=== PATIENT | male | born 1950 | race Caucasian/White ===

== ENCOUNTER 2024-02-29 13:22 | Emergency (ER) | payer MEDICARE, OTHER, SELFPAY ==
[2024-02-29 13:31] VITALS: BP 107/78
[2024-02-29 13:52] LABS: % Basophils 0.6 % (0-2); % Immature Granulocytes 1.5 % (0-0.5); % Lymphocytes 14.6 % (20.5-51.1); % Monocytes 4.1 % (1.7-9.3); % Neutrophils 78.2 % (42.2-75.2); Absolute Basophils 0.1 10^3/uL (0-0.2); Absolute Eosinophils 0.1 10^3/uL (0-0.7); Absolute Immature Granulocytes 0.2 10^3/uL (0-0.05); Absolute Lymphocytes 1.6 10^3/uL (1.2-3.4); Absolute Monocytes 0.5 10^3/uL (0.1-0.6); Absolute Neutrophils 8.6 10^3/uL (1.4-6.5); Hematocrit 46.6 % (39.0-52.0); Mean Corp Hgb Conc. 34.3 g/dL (33.0-37.0); Mean Corpuscular Hgb 31.3 pg (27.0-31.0); Mean Platelet Volume 8.5 fL (7.4-10.4); Nucleated Red Blood Cells % 0 % (-); Platelet Count 302 10^3/uL (130-400); Red Blood Cell Count 5.12 10^6/uL (4.70-6.10); Red Cell Dist. Width 14.5 % (11.5-14.5)
[2024-02-29 14:16] LABS: ALT (SGPT) 34 U/L (0-50); AST (SGOT) 26 U/L (17-59); Albumin 4.2 g/dl (3.5-5.0); Alkaline Phosphatase 78 U/L (38-126); Blood Urea Nitrogen 24 mg/dl (9-20); Calcium 10.3 mg/dl (8.4-10.2); Carbon Dioxide 26 mmol/L (22-30); Chloride 103 mmol/L (98-107); Glucose 119 mg/dl (70-99); Potassium 4.4 mmol/L (3.5-5.1); Sodium 138 mmol/L (135-145); Total Bilirubin 0.6 mg/dl (0.2-1.3); Total Protein 7.4 g/dl (6.3-8.2); eGFR > 60.00
[2024-02-29 14:20] LABS: Troponin I 0.055 ng/ml
[2024-02-29 14:44] VITALS: BMI 31.9
[2024-02-29 14:49] VITALS: BP 101/62
[2024-02-29 15:10] VITALS: BP 111/74
--- NOTE | 2024-02-29 15:30 | ED.GENMED ---
History of Present Illness
<Diane Cole PA-C - Last Filed: 02/29/24 20:05>
General
Chief Complaint: Dizziness
Source: patient
Exam Limitations: none
Time Seen by Provider: 02/29/24 15:13
Nursing documentation reviewed up to this point in time: agreed with
Travel History
Have you had any contact with someone who has COVID-19?: No
Do you have any symptoms of coronavirus? Fever > 100 degrees, chills, cough, shortness of breath, sore throat, loss of taste or smell, muscle aches, or headache?: No
History of Present Illness
History of Present Illness:
Patient is a 73 year old male with hx CAD s/p multiple stents and CABG, HTN, HLD presenting to the emergency department due to worsening fatigue and lightheadedness. Symptoms been ongoing for the past 10 days, but he noticed an acute worsening this
past weekend approximate 2 days ago. Patient describes worsening fatigue, and lightheadedness worse with exertion. Patient denies any true spinning sensation. Patient does endorse some worsening shortness of breath with exertion, as well.
Patient denies any chest pain, nausea, vomiting, diaphoresis, back pain. Patient does however note that he recently finished a weeklong course of Bactrim for a UTI. Patient denies any fever, chills, abdominal pain, or urinary symptoms at this
time. Patient does also endorse some weight loss over the past few weeks.
Patient denies any recent travel or recent surgeries.
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
Past History
<Diane Cole PA-C - Last Filed: 02/29/24 20:05>
Past History
ED Past Medical History: CAD, HTN, Hypercholesterolemia and Other (gallstones); Negative Asthma, Cancer, CHF, COPD or CVA
ED Past Surgical History: Cardiac; Negative Appendectomy or Cholecystectomy
Social History
Tobacco: Non-smoker
Alcohol: Occasional
Drug: None
Personal:
Living: with family
Employment: Employed
Family History
Family History: Hypertension; Negative Early CAD
Review of Systems
<Diane Cole PA-C - Last Filed: 02/29/24 20:05>
Review of Systems
Allergies reviewed?: Yes
All Other Systems: ROS reviewed and negative except as documented in HPI and ROS
Phy Exam
<Diane Cole PA-C - Last Filed: 02/29/24 20:05>
Physical Exam
Physical Exam:
Vitals: Patient's vital signs are stable. Afebrile
General: Patient is well appearing, no acute distress. Nontoxic appearing.
Skin: Warm and dry, no rashes or lesions
Head: Normocephalic, atraumatic
Eyes: Sclera nonicteric. EOMs intact. No nystagmus.
Throat: Protecting airway
Neck: Normal ROM, no cervical spine tenderness, no meningismus.
Cardiac: Regular rate and rhythm, no murmurs.
Pulm: Normal respiratory effort, no wheezes, rales, rhonchi heard on exam.
Abdomen: Abdomen soft. No abdominal tenderness.
Extremities: No evidence of cyanosis or edema. Good distal pulses.
Neuro: AAOx3. CN II-XII intact. No focal neurologic deficits. Normal finger to nose.
Psychiatric: Normal affect.
Course
<Diane Cole PA-C - Last Filed: 02/29/24 20:05>
Orders/Labs/Results
Orders:
Orders
02/29/24 13:35
Electrocardiogram (*1) Urgent
Reason for Study: Fatigue / Weakness
EKG- Treatment ONCE
02/29/24 13:45
Complete Blood Count/With Diff Urgent
Comprehensive Metabolic Panel Urgent
Troponin I Urgent
02/29/24 15:31
0.9% Sodium Chloride 1000 ml [Nss] 1,000 ml IV BOLUS
02/29/24 15:45
CR Chest - 2 Views Urgent
Comment:
Reason For Exam: weakness, lightheadedness
02/29/24 15:46
EKG- Treatment ONCE
02/29/24 15:54
Urinalysis Reflex To Culture Urgent
Date Specimen was Collected: 02/29/24
Time Specimen was Collected: 15:50
02/29/24 16:45
Electrocardiogram (*1) Urgent
Reason for Study: Fatigue / Weakness
02/29/24 16:59
NT-proBNP Urgent
Troponin I Urgent
Abnormal Lab Results
02/29/24 02/29/24
13:45 16:59
WBC 11.0 H 10^3/uL
(4.8-10.8)
MCH 31.3 H pg
(27.0-31.0)
Abs Immat Gran (auto) 0.2 H 10^3/uL
(0-0.05)
Absolute Neuts (auto) 8.6 H 10^3/uL
(1.4-6.5)
Immature Gran % 1.5 H %
(0-0.5)
Neutrophils % 78.2 H %
(42.2-75.2)
Lymphocytes % 14.6 L %
(20.5-51.1)
BUN 24 H mg/dl
(9-20)
Glucose 119 H mg/dl
(70-99)
Calcium 10.3 H mg/dl
(8.4-10.2)
Troponin I 0.055 H* ng/ml 0.051 H* ng/ml
02/29/24 13:45
02/29/24 13:45
Vital Signs
Initial and Last Documented VS:
Initial Vital Signs
Temp Pulse Resp BP Pulse Ox
98.4 F 78 18 107/78 95
02/29/24 13:31 02/29/24 13:31 02/29/24 13:31 02/29/24 13:31 02/29/24 13:31
Last Documented Vital Signs
Temp Pulse Resp BP Pulse Ox
98.4 F 65 26 116/73 95
02/29/24 13:31 02/29/24 18:45 02/29/24 15:10 02/29/24 16:00 02/29/24 18:15
<Manuel Zelaya, DO - Last Filed: 02/29/24 16:26>
Orders/Labs/Results
Orders:
Orders
02/29/24 13:35
Electrocardiogram (*1) Urgent
Reason for Study: Fatigue / Weakness
EKG- Treatment ONCE
02/29/24 13:45
Complete Blood Count/With Diff Urgent
Comprehensive Metabolic Panel Urgent
Troponin I Urgent
02/29/24 15:31
0.9% Sodium Chloride 1000 ml [Nss] 1,000 ml IV BOLUS
02/29/24 15:45
CR Chest - 2 Views Urgent
Comment:
Reason For Exam: weakness, lightheadedness
02/29/24 15:46
EKG- Treatment ONCE
02/29/24 15:54
Urinalysis Reflex To Culture Urgent
Date Specimen was Collected: 02/29/24
Time Specimen was Collected: 15:50
02/29/24 16:45
Electrocardiogram (*1) Urgent
Reason for Study: Fatigue / Weakness
02/29/24 16:59
NT-proBNP Urgent
Troponin I Urgent
Abnormal Lab Results
02/29/24 02/29/24
13:45 16:59
WBC 11.0 H 10^3/uL
(4.8-10.8)
MCH 31.3 H pg
(27.0-31.0)
Abs Immat Gran (auto) 0.2 H 10^3/uL
(0-0.05)
Absolute Neuts (auto) 8.6 H 10^3/uL
(1.4-6.5)
Immature Gran % 1.5 H %
(0-0.5)
Neutrophils % 78.2 H %
(42.2-75.2)
Lymphocytes % 14.6 L %
(20.5-51.1)
BUN 24 H mg/dl
(9-20)
Glucose 119 H mg/dl
(70-99)
Calcium 10.3 H mg/dl
(8.4-10.2)
Troponin I 0.055 H* ng/ml 0.051 H* ng/ml
02/29/24 13:45
02/29/24 13:45
Vital Signs
Initial and Last Documented VS:
Initial Vital Signs
Temp Pulse Resp BP Pulse Ox
98.4 F 78 18 107/78 95
02/29/24 13:31 02/29/24 13:31 02/29/24 13:31 02/29/24 13:31 02/29/24 13:31
Last Documented Vital Signs
Temp Pulse Resp BP Pulse Ox
98.4 F 65 26 116/73 95
02/29/24 13:31 02/29/24 18:45 02/29/24 15:10 02/29/24 16:00 02/29/24 18:15
<Diane Cole PA-C - Last Filed: 02/29/24 20:05>
MDM/Problems Addressed
Differential Diagnosis Includes:
Not limited to: Dehydration, viral illness, UTI, pericarditis, myocarditis, ACS
MDM/Problems Addressed:
73-year-old male with significant past cardiac history including CAD with 2 LAD stents, CABG > 30 years ago presenting with persistent and worsening lightheadedness and fatigue over the past week. Patient does also endorse worsening dyspnea on
exertion over the past month. Some recent weight loss, as well. patient with recently treated UTI, although denies urinary symptoms at this time. Patient denies any chest pain, fever, chills. Labs obtained in triage show signs of mild dehydration
and elevated troponin to 0.055. ECG shows some nonspecific T wave flattening inferior leads, although compared to prior EKG and seems stable without any acute ischemic changes. Patient's vital signs are stable. Exam as above. Somewhat dry
appearing. Lungs clear bilaterally, heart regular rate and rhythm. Good distal pulses. Given elevated troponin�will repeat in 3 hours, check BNP. Will check chest x-ray. Given recent UTI and increased fatigue�will check urinalysis. Will give
IV fluids.
Chest x-ray shows no acute abnormalities. Urinalysis shows no signs of infection at this time. proBNP at 343. Second troponin essentially stable at 0.051. Patient remains stable without any chest pain. Did touch base with cardiology,
[facility], who agrees that patient is stable for discharge with outpatient cardiology follow-up. Symptoms possibly related to dehydration. Will place patient on chest pain hotline. Return precautions discussed with patient at length. Discussed
importance of staying well-hydrated, take it easy. Patient will follow with cardiology. All questions answered.
Chronic conditions affecting care:
CAD, hypertension, hyperlipidemia
Acute Exacerbation and/or Progression of Chronic Illness:
N/A
<Diane Cole PA-C - Last Filed: 02/29/24 20:05>
*Radiology
Radiology exam reviewed: preliminary read by ED provider and radiology read reviewed
*Pulse Oximetry
Patient hypoxic: no
*EKG
Interpreted by ED Provider?: Yes
EKG Intrepretation Date: 02/29/24
Interpretation: abnormal
Heart Rate: 76
Rate: normal
Rhythm: sinus
Ischemia: non-specific ST changes
*Plate Cutter Interpretation
Rate: normal
Interpretation: normal
Heart Rate: 76
Rhythm: sinus
*Critical Care Note
Total Time (30-74mins, 75-104mins- exclusive of procedures): Not Applicable
Data Reviewed
Review of Other/Old Records Reveals: Records, Radiology Studies and Testing (Stress test report from 10/01/23)
<Diane Cole PA-C - Last Filed: 02/29/24 20:05>
Patient Management
Discussion with other providers: Hog Room Supervisor (Cardiology - Dr. De León)
ED Attending Note
<Diane Cole PA-C - Last Filed: 02/29/24 20:05>
-
Portions of this chart may have been created with voice recognition software.� Occasional wrong word or��sound alike� substitutions may have occurred due to the inherent limitations of voice recognition software.
<Manuel Zelaya, - Last Filed: 02/29/24 16:26>
ED Attending Note
Patient seen and examined by attending physician: Yes
I performed a history and physical exam of patient and discussed management with resident, I reviewed resident's note and agree with documented findings and plan of care.: Yes
ED Attending Note:
I have reviewed and agree with history and treatment plan by Diane Cole. My exam revealed
Physical Exam
General: no apparent distress, not acutely ill
Neck: supple. no meningeal signs. normal posterior pharynx
Heart: s1/s2 regular rate and rhythm, no murmur. equal radial
pulses.
HEENT: Pupils equal round reactive to light, EOMI
Lungs: no acute respiratory distress. clear bilaterally
Abdomen: normal bowel sounds. not tender. no CVAT
Neuro: alert and oriented. no focal neurological deficits cranial nerves II through XII intact
Skin: no rash
Psychiatric: well kept. interactive and cooperative
Extremities: no edema. no calf tenderness. negative homans. good distal pulses
73-year-old male with dizziness and weakness, unclear cause. Patient had shortness of breath with exertion ongoing for 1 month.
Discharge Plan
Departure
Patient Disposition: Home (Routine Discharge)
Date of Disposition: 02/29/24
Time of Disposition: 18:27
Patient with high blood pressure during this ER visit?: No
Condition: Good
Covid-19: Not Applicable
Discharge Problem:
Lightheadedness, SNIDER (dyspnea on exertion)
Instructions: Dizziness, Adult ED, Shortness of Breath, Adult ED, Chest Pain CBC Follow Up
Prescriptions:
No Action
clopidogrel 75 MG tablet
75 mg PO DAILY
Metamucil Packet
1 packet PO BID
Theragen Tablet
1 tab PO DAILY
chlorthalidone 25 mg Tablet
25 mg PO DAILY
aspirin 81 mg Tablet,Delayed Release (Dr/Ec)
81 mg PO DAILY
pantoprazole [Protonix] 40 mg Tablet,Delayed Release (Dr/Ec)
40 mg PO DAILY
folic acid 1 mg Tablet
1 mg PO DAILY
Tylenol PM Extra Strength 25-500 mg Tablet
1 tab PO HSPRN PRN (Reason: mild pain)
ezetimibe-simvastatin [Vytorin 10-80] 10-80 mg Tablet
1 tab PO DAILY
Referrals:
Godfrey Hammer MD [Active] - Next open appointment
Kael Clarke MD [Family Provider] -
Activity Restrictions/Additional Instructions:
RETURN TO THE EMERGENCY DEPARTMENT WITH ANY FEVERS, CHEST PAIN, WORSENING SHORTNESS OF BREATH, FAINTING, PERSISTENT DIZZINESS, HEADACHE, WORSENING IN SYMPTOMS, OR ANY OTHER CONCERNS
-As discussed, it is important stay well-hydrated. You should eat a balanced diet. Get plenty of rest.
-Follow-up with cardiology for further evaluation/management. You should also touch base with your primary care physician
Interventions
Interventions:
*Risk Screen - Suicide Last Done: 02/29/24 14:44
*General Assessment Last Done: 02/29/24 14:44
*Neglect/Abuse Screening Last Done: 02/29/24 14:44
ED- Fall Risk Assessment Last Done: 02/29/24 14:44
*ED COVID-19 Vaccine History Last Done: 02/29/24 14:44
*Nursing Disposition Last Done: 02/29/24 18:57
ED- Pulmonary Assessment Last Done: 02/29/24 14:44
ED- Neurological Assessment Last Done: 02/29/24 14:44
ED- Cardiac Assessment Last Done: 02/29/24 14:44
ED Swallowing Screen Last Done: 02/29/24 14:50
Discharge Date and Time
Discharge Date/Time: 02/29/24 18:57
Print Language: GREENLANDIC
[2024-02-29 16:00] VITALS: BP 116/73
[2024-02-29 16:21] LABS: Urine Albumin Negative (Neg - Trace); Urine Bilirubin Negative (Negative); Urine Character Clear (Clear); Urine Color Yellow; Urine Glucose Negative (Negative); Urine Ketone Negative (Negative); Urine Leukocyte Negative (Negative); Urine Nitrite Negative (Negative); Urine Occult Blood Negative (Negative); Urine Specific Gravity 1.015 (<1.030); Urine Urobilinogen Negative (Neg - 1+)
[2024-02-29] MEDS: NSS 1000 IV (17:06)
[2024-02-29 17:45] LABS: NT-proBNP 343 pg/ml; Troponin I 0.051 ng/ml
== END 2024-02-29 18:57 | disposition home or self-care (01) ==
LOC: EMR 13:22
PROVIDERS: Emergency Medicine; Physician Assistant; EMERGENCY PHYSICIAN Emergency Medicine; FAMILY PHYSICIAN Internal Medicine
DX: R06.09 Other forms of dyspnea (principal); R42 Dizziness and giddiness; R53.1 Weakness; R53.83 Other fatigue; I25.10 Atherosclerotic heart disease of native coronary artery without angina pectoris; Z95.1 Presence of aortocoronary bypass graft; Z95.5 Presence of coronary angioplasty implant and graft; I10 Essential (primary) hypertension; E78.00 Pure hypercholesterolemia, unspecified; Z87.440 Personal history of urinary (tract) infections; Z88.0 Allergy status to penicillin; Z91.048 Other nonmedicinal substance allergy status; Z79.82 Long term (current) use of aspirin
CPT/HCPCS: 99284; 96360; 71046; 80053; 81003; 83880; 84484; 85025; 93005

== ENCOUNTER → 2024-04-01 12:43 | Outpatient (REF) | payer MEDICARE, OTHER, SELFPAY | LOC: RCS 12:43 | PROVIDERS: ATTENDING PHYSICIAN Nurse Practitioner; FAMILY PHYSICIAN Internal Medicine | DX: Z98.890 Other specified postprocedural states (principal); I25.10 Atherosclerotic heart disease of native coronary artery without angina pectoris; R06.02 Shortness of breath | CPT/HCPCS: 93306 ==

== ENCOUNTER → 2024-07-11 12:08 | Outpatient (REF) | payer MEDICARE, OTHER, SELFPAY | LOC: RAD 12:08 | PROVIDERS: ATTENDING PHYSICIAN Internal Medicine Cardiovascular Disease; FAMILY PHYSICIAN Internal Medicine | DX: Z98.890 Other specified postprocedural states (principal); R07.89 Other chest pain | CPT/HCPCS: 71046 ==

== ENCOUNTER 2024-08-31 09:36 | Emergency (ER) | payer MEDICARE, OTHER, SELFPAY ==
[2024-08-31] VITALS (10 sets, daily range): BP systolic 144–177; BP diastolic 89–104; PULSE 70–74; BMI 32.3
[2024-08-31 10:04] LABS: % Basophils 0.6 % (0-2); % Eosinophils 3.5 % (0-6); % Immature Granulocytes 0.3 % (0-0.5); % Lymphocytes 20.7 % (20.5-51.1); % Monocytes 7.6 % (1.7-9.3); % Neutrophils 67.3 % (42.2-75.2); Absolute Basophils 0.1 10^3/uL (0-0.2); Absolute Eosinophils 0.3 10^3/uL (0-0.7); Absolute Lymphocytes 1.6 10^3/uL (1.2-3.4); Absolute Monocytes 0.6 10^3/uL (0.1-0.6); Absolute Neutrophils 5.2 10^3/uL (1.4-6.5); Hematocrit 46.3 % (39.0-52.0); Mean Corp Hgb Conc. 32.4 g/dL (33.0-37.0); Mean Corpuscular Hgb 31.4 pg (27.0-31.0); Mean Corpuscular Volume 97.1 fL (80.0-94.0); Mean Platelet Volume 9.2 fL (7.4-10.4); Nucleated Red Blood Cells % 0 % (-); Platelet Count 189 10^3/uL (130-400); Red Blood Cell Count 4.77 10^6/uL (4.70-6.10); Red Cell Dist. Width 14.1 % (11.5-14.5); White Blood Cell Count 7.7 10^3/uL (4.8-10.8)
[2024-08-31 10:19] LABS: ALT (SGPT) 34 U/L (0-50); AST (SGOT) 29 U/L (17-59); Albumin 4.5 g/dl (3.5-5.0); Alkaline Phosphatase 73 U/L (38-126); Blood Urea Nitrogen 32 mg/dl (9-20); Calcium 10.5 mg/dl (8.4-10.2); Carbon Dioxide 31 mmol/L (22-30); Chloride 104 mmol/L (98-107); Glucose 107 mg/dl (70-99); Potassium 4.6 mmol/L (3.5-5.1); Sodium 143 mmol/L (135-145); Total Bilirubin 0.6 mg/dl (0.2-1.3); Total Protein 7.3 g/dl (6.3-8.2); eGFR > 60.00
[2024-08-31 10:31] LABS: Troponin I < 0.012 ng/ml
--- NOTE | 2024-08-31 10:37 | ED.GENMED ---
History of Present Illness
General
Chief Complaint: Dizziness
Source: patient
Time Seen by Provider: 08/31/24 10:12
History of Present Illness
History of Present Illness:
73yoM with a history of coronary artery disease s/p CABG and PCI, hypertension, hyperlipidemia, and TIAs presenting for evaluation of dizziness. He noticed the symptoms when he woke up this morning at 4am. He states he sat up in bed and fell
backwards into the bed. He describes the dizziness as feeling 'wobbly on his feet.' Symptoms worsen with standing and ambulation and resolve if he is laying flat. He was able to drive himself to an appointment this morning but was feeling unsteady
with walking when he stood up. No prior history of the same. He also reports some chest discomfort which he just noticed during exam. He denies any falls, headache, visua changes, ear pain, tinnitus, paresthesias, weakness. He is currently on
aspirin and Plavix.
Past History
Past History
ED Past Medical History: CAD, HTN, Hypercholesterolemia and Other (gallstones); Negative Asthma, Cancer, CHF, COPD or CVA
ED Past Surgical History: Cardiac; Negative Appendectomy or Cholecystectomy
Social History
Tobacco: Non-smoker
Alcohol: Occasional
Drug: None
Personal:
Living: with family
Employment: Employed
Family History
Family History: Hypertension; Negative Early CAD
Phy Exam
General Physical Exam
General Presentation: well appearing and no apparent distress
General age: appears stated age
General Skin: warm and dry
General Habitus: normal
General Mental: alert
ENT Exam
ENT Exam: TM's normal and normocephalic
Eye Exam
Eye Exam: PERRL, EOMI and conjunctiva normal
Cardiovascular Exam
Cardiovascular Exam: regular rate/rhythm
Pulmonary Exam
Pulmonary Exam: lungs clear, no respiratory distress, no rales, no crackles and no rhonchi
Neurological Exam
Neurological Exam: alert, CN II-XII intact, no motor deficits and other (CN 2-12 grossly intact. No nystagmus noted on EOMs. 5/5 strength and gross sensation intact in all extremities. Negative drift x4. Normal finger to nose and heel to calderón
bilaterally. Mild unsteadiness with ambulation although no gait ataxia noted.)
[place] Coma Scale
Eye Opening: Spontaneous
Verbal Response: Oriented
Motor Response: Obeys Commands
GCS Total Score: 15
Skin Exam
Skin Exam: normal color and warm/dry
Psychiatric Exam
Psychiatric Exam: normal mood/affect
Course
Orders/Labs/Results
Orders:
Orders
08/31/24 09:48
Electrocardiogram (*1) Urgent
Reason for Study: Vertigo / Dizzy
EKG- Treatment ONCE
08/31/24 09:49
CT Head W/o Iv Contrast Urgent
Comment:
Reason For Exam: dizziness
08/31/24 09:57
Complete Blood Count/With Diff Urgent
Comprehensive Metabolic Panel Urgent
Troponin I Urgent
08/31/24 10:38
Cardiac Monitoring- Treatment ONCE
EKG- Treatment ONCE
Orthostatic VS- Treatment ONCE
08/31/24 11:48
Pt Eval And Treat Urgent
Treatment: vestibular eval
Activity Level: Out of Bed- Ad Jonna
08/31/24 13:00
Electrocardiogram (*1) Urgent
Reason for Study: Vertigo / Dizzy
08/31/24 13:05
Troponin I Urgent
Abnormal Lab Results
08/31/24
09:57
MCV 97.1 H fL
(80.0-94.0)
MCH 31.4 H pg
(27.0-31.0)
MCHC 32.4 L g/dL
(33.0-37.0)
Carbon Dioxide 31 H mmol/L
(22-30)
BUN 32 H mg/dl
(9-20)
Glucose 107 H mg/dl
(70-99)
Calcium 10.5 H mg/dl
(8.4-10.2)
08/31/24 09:57
08/31/24 09:57
Vital Signs
Initial and Last Documented VS:
Initial Vital Signs
Temp Pulse Resp BP Pulse Ox
98.0 F 78 16 177/89 98
08/31/24 09:44 08/31/24 09:44 08/31/24 09:44 08/31/24 09:44 08/31/24 09:44
Last Documented Vital Signs
Temp Pulse Resp BP Pulse Ox
98.0 F 74 18 158/90 97
08/31/24 09:44 08/31/24 14:00 08/31/24 14:00 08/31/24 13:20 08/31/24 12:45
MDM/Problems Addressed
Differential Diagnosis Includes:
73yoM here with dizziness that started at 4am this morning. Describes as feeling wobbly on his feet. Worse with standing/ambulation, resolves with sitting. Denies lightheadedness and vertiginous symptoms. He is hypertensive with otherwise normal
vital signs. He is well appearing in no distress. No nystagmus noted on exam. Finger to nose and heel to calderón testing normal. Mild unsteadiness with ambulation although no gait ataxia noted. Differential diagnosis includes but is not limited to:
peripheral vertigo, vertebral insufficiency, orthostatic hypotension, CVA
Initial ED plan: Check cardiac labs, EKG, CT head, and orthostatic vital signs.
*EKG
Interpreted by ED Provider?: Yes
EKG Intrepretation Date: 08/31/24
Heart Rate: 76
Rate: normal
Rhythm: sinus
[place]: normal axis
Interval: normal interval
QRS Pattern: normal QRS
Ischemia: no ischemia
*Critical Care Note
Total Time (30-74mins, 75-104mins- exclusive of procedures): Not Applicable
Update Note
Update Note:
EKG shows NSR without ischemic changes and troponin WNL. CT head negative for acute findings. Orthostatic vitals negative. Patient evaluated by PT. Hallpike and neuritis testing negative. PT recommending outpatient vestibular therapy. On
reassessment, he is feeling much better and dizziness is 80% resolved. He is ambulating independently. Very low clinical suspicion for CVA as symptoms are resolving and are positional. He was advised to f/u closely with his PCP and strict ED return
precautions discussed. He expressed understanding and is in agreement with discharge/plan. He was discharged in stable condition.
ED Attending Note
-
Portions of this chart may have been created with voice recognition software.� Occasional wrong word or��sound alike� substitutions may have occurred due to the inherent limitations of voice recognition software.
Discharge Plan
Departure
Patient Disposition: Home (Routine Discharge)
Date of Disposition: 08/31/24
Time of Disposition: 14:31
Patient with high blood pressure during this ER visit?: Yes
Discharge Problem:
Dizziness, nonspecific
Instructions: Dizziness
Prescriptions:
No Action
clopidogrel 75 MG tablet
75 mg PO DAILY
Metamucil Packet
1 packet PO BID
Theragen Tablet
1 tab PO DAILY
chlorthalidone 25 mg Tablet
25 mg PO DAILY
aspirin 81 mg Tablet,Delayed Release (Dr/Ec)
81 mg PO DAILY
pantoprazole [Protonix] 40 mg Tablet,Delayed Release (Dr/Ec)
40 mg PO DAILY
folic acid 1 mg Tablet
1 mg PO DAILY
Tylenol PM Extra Strength 25-500 mg Tablet
1 tab PO HSPRN PRN (Reason: mild pain)
ezetimibe-simvastatin [Vytorin 10-80] 10-80 mg Tablet
1 tab PO DAILY
Referrals:
Kael Clarke MD [Family Provider] -
Activity Restrictions/Additional Instructions:
Please call your family doctor today to schedule a follow-up appointment. You should also call to schedule follow up with physical therapy.
Return to the ER immediately with any new or worsening symptoms.
Interventions
Interventions:
*Risk Screen - Suicide Last Done: 08/31/24 09:44
*General Assessment Last Done: 08/31/24 11:21
*Neglect/Abuse Screening Last Done: 08/31/24 09:44
ED- Fall Risk Assessment Last Done: 08/31/24 11:21
*ED COVID-19 Vaccine History Last Done: 08/31/24 11:21
*Nursing Disposition Last Done: 08/31/24 15:00
ED- Neurological Assessment Last Done: 08/31/24 11:21
ED Swallowing Screen Last Done: 08/31/24 11:21
Discharge Date and Time
Discharge Date/Time: 08/31/24 15:01
Print Language: SLOV[place]
[2024-08-31 14:11] LABS: Troponin I < 0.012 ng/ml
== END 2024-08-31 15:01 | disposition home or self-care (01) ==
LOC: EMR 09:36
PROVIDERS: Physician Assistant; EMERGENCY PHYSICIAN Emergency Medicine; FAMILY PHYSICIAN Internal Medicine
DX: R42 Dizziness and giddiness (principal); W06.XXXA Fall from bed, initial encounter; E78.00 Pure hypercholesterolemia, unspecified; I11.0 Hypertensive heart disease with heart failure; I25.10 Atherosclerotic heart disease of native coronary artery without angina pectoris; I50.9 Heart failure, unspecified; Z79.02 Long term (current) use of antithrombotics/antiplatelets; Z79.82 Long term (current) use of aspirin; Z82.49 Family history of ischemic heart disease and other diseases of the circulatory system; Z86.73 Personal history of transient ischemic attack (TIA), and cerebral infarction without residual deficits; Z90.49 Acquired absence of other specified parts of digestive tract; Z95.1 Presence of aortocoronary bypass graft; Z95.5 Presence of coronary angioplasty implant and graft
CPT/HCPCS: 99284; 70450; 80053; 84484; 85025; 93005

== ENCOUNTER 2024-11-06 10:18 | Emergency (ER) | payer MEDICARE, OTHER, SELFPAY ==
[2024-11-06 10:23] VITALS: BP 152/99
--- NOTE | 2024-11-06 10:40 | ED.GENMED ---
History of Present Illness
General
Chief Complaint: Fall
Time Seen by Provider: 11/06/24 10:34
History of Present Illness
History of Present Illness:
73-year-old male presents to the emergency department for evaluation after a fall yesterday, slipped on ice and fell forward with his hands bracing his chest. He has pain to the left anterior chest wall that is worse with deep breathing. No
hemoptysis or abdominal pain. Also complaining of right wrist pain however no distal paresthesias
Past History
Past History
ED Past Medical History: CAD, HTN, Hypercholesterolemia and Other (gallstones); Negative Asthma, Cancer, CHF, COPD or CVA
ED Past Surgical History: Cardiac; Negative Appendectomy or Cholecystectomy
Social History
Tobacco: Non-smoker
Alcohol: Occasional
Drug: None
Personal:
Living: with family
Employment: Employed
Family History
Family History: Hypertension; Negative Early CAD
Review of Systems
Review of Systems
Allergies reviewed?: Yes
All Other Systems: ROS reviewed and negative except as documented in HPI and ROS
Phy Exam
Physical Exam
Physical Exam:
GEN: Well appearing, NAD, WDWN
HEENT: Oral mucosa moist, no scleral icterus
Cardiac: Regular rate and rhythm, no murmurs
Chest: Tenderness to the left sternocostal joints, no palpable deformity
Lung: No respiratory distress, no tachypnea, lungs clear to auscultation
MSK: No gross deformity or injuries, mild tenderness to the right distal radial/carpal joints, range of motion normal
Skin: Good color, no pallor or jaundice, no rashes
Neuro: AO x3, moves all extremities freely
Psych: Calm, cooperative
Course
Orders/Labs/Results
Orders:
Orders
11/06/24 10:40
CT Chest W/o Iv Contrast Urgent
Comment:
Reason For Exam: anterior L chest wall injury
Oxycodone [Roxicodone] 5 mg PO NOW STA
11/06/24 10:41
CR Wrist - Right Min 3 Views Urgent
Comment:
Reason For Exam: fall
Vital Signs
Initial and Last Documented VS:
Initial Vital Signs
Temp Pulse Resp BP Pulse Ox
98.0 F 79 18 152/99 96
11/06/24 10:23 11/06/24 10:23 11/06/24 10:23 11/06/24 10:23 11/06/24 10:23
Last Documented Vital Signs
Temp Pulse Resp BP Pulse Ox
98.0 F 75 20 138/90 98
11/06/24 10:23 11/06/24 12:00 11/06/24 12:00 11/06/24 12:00 11/06/24 12:00
MDM/Problems Addressed
MDM/Problems Addressed:
X-rays on the wrist are unremarkable, CT does interestingly show a posterior rib fracture despite the patient's anterior pain. No internal injuries noted. Discussed supportive care
*Critical Care Note
Total Time (30-74mins, 75-104mins- exclusive of procedures): Not Applicable
ED Attending Note
-
Portions of this chart may have been created with voice recognition software.� Occasional wrong word or��sound alike� substitutions may have occurred due to the inherent limitations of voice recognition software.
Discharge Plan
Departure
Patient Disposition: Home (Routine Discharge)
Date of Disposition: 11/06/24
Time of Disposition: 12:28
Patient with high blood pressure during this ER visit?: No
Discharge Problem:
Fracture of rib
Instructions: Rib fracture or bruised rib - ED discharge instructions
Prescriptions:
New
oxycodone 5 mg tablet
5 mg PO Q8H PRN (Reason: Pain) Qty: 10 0RF
No Action
clopidogrel 75 MG tablet
75 mg PO DAILY
Metamucil Packet
1 packet PO BID
Theragen Tablet
1 tab PO DAILY
chlorthalidone 25 mg Tablet
25 mg PO DAILY
aspirin 81 mg Tablet,Delayed Release (Dr/Ec)
81 mg PO DAILY
pantoprazole [Protonix] 40 mg Tablet,Delayed Release (Dr/Ec)
40 mg PO DAILY
folic acid 1 mg Tablet
1 mg PO DAILY
Tylenol PM Extra Strength 25-500 mg Tablet
1 tab PO HSPRN PRN (Reason: mild pain)
ezetimibe-simvastatin [Vytorin 10-80] 10-80 mg Tablet
1 tab PO DAILY
Referrals:
Kael Clarke MD [Family Provider] -
Interventions
Interventions:
*Risk Screen - Suicide Last Done: 11/06/24 12:00
*General Assessment Last Done: 11/06/24 12:00
*Neglect/Abuse Screening Last Done: 11/06/24 12:00
*ED COVID-19 Vaccine History Last Done: 11/06/24 12:00
*Nursing Disposition Last Done: 11/06/24 13:33
ED-Musculoskeletal Assessment Last Done: 11/06/24 12:00
ED- Neurological Assessment Last Done: 11/06/24 12:00
ED-Skin Assessment Last Done: 11/06/24 12:00
Discharge Date and Time
Discharge Date/Time: 11/06/24 13:33
Print Language: [place]UN[place]
[2024-11-06] MEDS: ROXICODONE 5 MG PO (10:47)
[2024-11-06 12:00] VITALS: BP 138/90
== END 2024-11-06 13:33 | disposition home or self-care (01) ==
LOC: EMR 10:18
PROVIDERS: EMERGENCY PHYSICIAN Emergency Medicine; FAMILY PHYSICIAN Internal Medicine
DX: S22.32XA Fracture of one rib, left side, initial encounter for closed fracture (principal); W00.0XXA Fall on same level due to ice and snow, initial encounter; I25.10 Atherosclerotic heart disease of native coronary artery without angina pectoris; E78.00 Pure hypercholesterolemia, unspecified; I10 Essential (primary) hypertension
CPT/HCPCS: 99284; 71250; 73110

== ENCOUNTER 2025-05-05 17:21 | Emergency (ER) | payer MEDICARE, OTHER, SELFPAY ==
[2025-05-05 17:23] VITALS: BP 149/94
[2025-05-05 17:42] LABS: Hematocrit 42.2 % (39.0-52.0); Hemoglobin 14.6 g/dL (13.0-18.0); Mean Corp Hgb Conc. 34.6 g/dL (33.0-37.0); Mean Corpuscular Volume 92.5 fL (80.0-94.0); Nucleated Red Blood Cells % 0 % (-); Platelet Count 176 10^3/uL (130-400); Red Cell Dist. Width 13.6 % (11.5-14.5)
[2025-05-05 17:59] LABS: ALT (SGPT) 30 U/L (0-50); AST (SGOT) 25 U/L (17-59); Albumin 4.5 g/dl (3.5-5.0); Alkaline Phosphatase 68 U/L (38-126); Blood Urea Nitrogen 24 mg/dl (9-20); Calcium 10.0 mg/dl (8.4-10.2); Carbon Dioxide 24 mmol/L (22-30); Chloride 108 mmol/L (98-107); Glucose 102 mg/dl (70-99); Potassium 4.4 mmol/L (3.5-5.1); Sodium 140 mmol/L (135-145); Total Protein 7.3 g/dl (6.3-8.2); eGFR > 60.00
[2025-05-05 18:03] VITALS: BP 164/85
[2025-05-05 18:11] LABS: Troponin I < 0.012 ng/ml
[2025-05-05 19:00] VITALS: BP 128/81
--- NOTE | 2025-05-05 19:33 | ED.GENMED ---
History of Present Illness
General
Chief Complaint: Chest Pain
Source: patient
Exam Limitations: none
Time Seen by Provider: 05/05/25 18:12
Nursing documentation reviewed up to this point in time: agreed with
History of Present Illness
History of Present Illness:
74-year-old male past medical history of hypertension hyperlipidemia, CAD presenting to the emergency department today with concerns of chest discomfort starting this morning to the central chest described as achiness without significant associated
shortness of breath nausea vomiting or diaphoresis. Took 2 nitroglycerin without significant improvement then took another in the afternoon symptoms are now fully resolved at this point. 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
regularly. Did of a CABG in the and stents many years ago. No recent trauma surgery immobilization or history of blood clots.
Past History
Past History
ED Past Medical History: CAD, HTN, Hypercholesterolemia and Other (gallstones); Negative Asthma, Cancer, CHF, COPD or CVA
ED Past Surgical History: Cardiac; Negative Appendectomy or Cholecystectomy
Social History
Tobacco: Non-smoker
Alcohol: Occasional
Drug: None
Personal:
Living: with family
Employment: Employed
Family History
Family History: Hypertension; Negative Early CAD
Review of Systems
Review of Systems
Allergies reviewed?: Yes
All Other Systems: ROS reviewed and negative except as documented in HPI and ROS
Phy Exam
Physical Exam
Physical Exam:
GENERAL: Alert , in no apparent distress
EYE: pupils equal and reactive
NECK: Supple, no significant adenopathy.
ENT: o/p clr, mmm.
CARDIAC: Regular rate and rhythm .
LUNGS: Clear breath sounds bilaterally, no acute respiratory distress, no wheezes/rales/rhonchi
ABDOMEN: Soft, without focal tenderness, no r/g, no cvat
NEUROLOGICAL: Alert and oriented, no focal neuro deficits
SKIN: Warm and dry, skin intact.
MUSCULOSKELETAL: No edema, well perfused.
PSYCH: Normal and appropriate interaction.
Scores
Heart Score for Chest Pain Patients
STEMI patient?: No
History: Slightly or Non-Suspicious
ECG: Nonspecific Repolarization
Age: >/= 65 years
Risk Factors: >/= 3 Risk Factors or History of CAD
Troponin: </= Normal Limit
Heart Score for Chest Pain Patients: 5
Heart Score Risk: 20.3% MACE over next 6 weeks
Course
Orders/Labs/Results
Orders:
Orders
05/05/25 17:22
EKG [Electrocardiogram (*1)] Urgent
Reason for Study: Chest Pain
EKG- Treatment ONCE
05/05/25 17:36
Complete Blood Count/With Diff Urgent
Comprehensive Metabolic Panel Urgent
Troponin I Urgent
05/05/25 18:12
Chest [CR Chest - 2 Views ] Urgent
Comment:
Reason For Exam: cp
05/05/25 19:45
EKG- Treatment ONCE
05/05/25 20:15
Electrocardiogram (*1) Urgent
Reason for Study: Chest Pain
05/05/25 20:24
Troponin I Urgent
Abnormal Lab Results
05/05/25
17:36
RBC 4.56 L 10^6/uL
(4.70-6.10)
MCH 32.0 H pg
(27.0-31.0)
Absolute Monos (auto) 0.7 H 10^3/uL
(0.1-0.6)
Monocytes % 9.8 H %
(1.7-9.3)
Chloride 108 H mmol/L
(98-107)
BUN 24 H mg/dl
(9-20)
Glucose 102 H mg/dl
(70-99)
05/05/25 17:36
05/05/25 17:36
Vital Signs
Initial and Last Documented VS:
Initial Vital Signs
Temp Pulse Resp BP Pulse Ox
98.2 F 83 16 149/94 98
05/05/25 17:23 05/05/25 17:23 05/05/25 17:23 05/05/25 17:23 05/05/25 17:23
Last Documented Vital Signs
Temp Pulse Resp BP Pulse Ox
98.2 F 78 26 164/85 95
05/05/25 17:23 05/05/25 18:04 05/05/25 18:04 05/05/25 18:03 05/05/25 19:36
MDM/Problems Addressed
MDM/Problems Addressed:
74-year-old male presenting to the emergency department today with concerns of chest discomfort symptoms that described as achiness without radiation or associated symptoms. Took multiple nitroglycerin at home without relief. He is currently
asymptomatic and seem to correlate with the nitroglycerin doses. On arrival blood pressure in the 140s over 90s vital signs normal EKG nonischemic without significant changes. Labs unremarkable troponin negative and chest x-ray normal. Troponin
EKG repeated and reassuring otherwise patient stable for close outpatient follow-up with cardiology. Return precautions given.
*Pulse Oximetry
SaO2: 95
Oxygen Mode of Delivery: Room air
Patient hypoxic: no (94)
*Critical Care Note
Total Time (30-74mins, 75-104mins- exclusive of procedures): Not Applicable
ED Attending Note
-
Portions of this chart may have been created with voice recognition software.� Occasional wrong word or��sound alike� substitutions may have occurred due to the inherent limitations of voice recognition software.
Discharge Plan
Departure
Patient Disposition: Home (Routine Discharge)
Date of Disposition: 05/05/25
Time of Disposition: 20:59
Patient with high blood pressure during this ER visit?: No
Condition: Good
Covid-19: Not Applicable
Discharge Problem:
Chest pain
Instructions: Chest Pain CBC Follow Up
Prescriptions:
No Action
clopidogrel 75 MG tablet
75 mg PO DAILY
Metamucil Packet
1 packet PO BID
Theragen Tablet
1 tab PO DAILY
chlorthalidone 25 mg Tablet
25 mg PO DAILY
aspirin 81 mg Tablet,Delayed Release (Dr/Ec)
81 mg PO DAILY
pantoprazole [Protonix] 40 mg Tablet,Delayed Release (Dr/Ec)
40 mg PO DAILY
folic acid 1 mg Tablet
1 mg PO DAILY
Tylenol PM Extra Strength 25-500 mg Tablet
1 tab PO HSPRN PRN (Reason: mild pain)
ezetimibe-simvastatin [Vytorin 10-80] 10-80 mg Tablet
1 tab PO DAILY
oxycodone 5 mg tablet
5 mg PO Q8H PRN (Reason: Pain) Qty: 10 0RF
Referrals:
Kael Clarke MD [Family Provider, Internal Medicine]
Activity Restrictions/Additional Instructions:
You came to the emergency department today with concerns of chest pain. Here you had a reassuring assessment. Please follow closely with cardiology. Return for any worsening, new or concerning symptoms.
Interventions
Interventions:
*Risk Screen - Suicide Last Done: 05/05/25 17:23
*Neglect/Abuse Screening Last Done: 05/05/25 17:23
ED- Cardiac Assessment Last Done: 05/05/25 18:00
Discharge Date and Time
Print Language: [id number]
[2025-05-05 20:24] VITALS: BP 149/96
[2025-05-05 20:58] LABS: Troponin I < 0.012 ng/ml
[2025-05-05 21:00] VITALS: BP 158/94
== END 2025-05-05 21:04 | disposition home or self-care (01) ==
LOC: EMR 17:21
PROVIDERS: Physician Assistant; EMERGENCY PHYSICIAN Emergency Medicine; FAMILY PHYSICIAN Internal Medicine
DX: R07.89 Other chest pain (principal); I11.0 Hypertensive heart disease with heart failure; I50.9 Heart failure, unspecified; I25.10 Atherosclerotic heart disease of native coronary artery without angina pectoris; E78.00 Pure hypercholesterolemia, unspecified; Z82.49 Family history of ischemic heart disease and other diseases of the circulatory system; Z86.73 Personal history of transient ischemic attack (TIA), and cerebral infarction without residual deficits; Z90.49 Acquired absence of other specified parts of digestive tract; Z95.1 Presence of aortocoronary bypass graft
CPT/HCPCS: 99283; 71046; 80053; 84484; 85025; 93005

== ENCOUNTER → 2025-05-26 07:00 | Outpatient (REF) | payer MEDICARE, OTHER, SELFPAY | LOC: HWRCS 07:00 | PROVIDERS: ATTENDING PHYSICIAN Internal Medicine Cardiovascular Disease; FAMILY PHYSICIAN Internal Medicine | DX: Z98.890 Other specified postprocedural states (principal); I25.10 Atherosclerotic heart disease of native coronary artery without angina pectoris | CPT/HCPCS: 93306 ==

== ENCOUNTER → 2025-06-06 08:17 | Outpatient (REF) | payer MEDICARE, OTHER, SELFPAY | LOC: HWRCS 08:17 | PROVIDERS: ATTENDING PHYSICIAN Internal Medicine Cardiovascular Disease; FAMILY PHYSICIAN Internal Medicine | DX: Z98.890 Other specified postprocedural states (principal); R07.9 Chest pain, unspecified; R07.89 Other chest pain | CPT/HCPCS: 78452; 93017; A9500; J2785 ==